=== PATIENT | female | born 1995 | race Caucasian/White ===

== ENCOUNTER → 2020-10-19 | Outpatient (CLI) | payer OTHER ==
--- NOTE | 2020-10-19 12:38 | Diagnostic Imaging Report ---
INDICATION: Anatomy scan. TECHNIQUE: Multiple real-time grayscale images were obtained over the gravid uterus. COMPARISON: None. FINDINGS: There is a single live fetus in variable presentation. heart rate was recorded 147 bpm. Cervical length is 6.6 cm. Amniotic fluid index is 15.3 cm. The placenta appears to be fundal as well as anterior and posterior. The kidneys, bladder and stomach are unremarkable. brain is unremarkable. There is a four-chamber heart. There is a three-vessel cord with normal insertion. spine is unremarkable. Biometrical measurements are as follows: Biparietal 4.59 cm, age 20 weeks 0 days. Head circumference 17.44 cm, age 20 weeks 0 days. Abdominal circumference 14.66 cm, age 20 weeks 0 days. Femur length 2.89 cm, age 19 weeks 0 days. Sonographic estimate age: 19 weeks 6 days. Sonographic estimated date of delivery: 03/09/2021. Estimated Weight: 297 gm (+/- 43 gm). LMP percentile: 21%. heart rate: 147 beats per minute. number: 1 of 1. IMPRESSION: Single live IUP 19 weeks 6 days gestational age. Estimated date of confinement sonographically is 03/09/2021. Dictated by: Dictated on workstation # [id number]
== END ==
LOC: RAD 10:00
PROVIDERS: ATTEND Nurse Practitioner Women's Health
DX: Z34.02 Encounter for supervision of normal first pregnancy, second trimester (principal); Z3A.19 19 weeks gestation of pregnancy
CPT/HCPCS: 76805

== ENCOUNTER 2021-01-27 09:21 | Outpatient (CLI) | payer OTHER ==
[~2021-01-27] VITALS: Ht 149.9 cm; Wt 67.3 kg
[2021-01-27 09:51] VITALS: BP 110/77
[2021-01-27 09:51] LABS: BILIRUBIN,URINE NEGATIVE (NEGATIVE); CLARITY,URINE SL CLOUDY; COLOR,URINE YELLOW; GLUCOSE, URINE (UA) NEGATIVE (NEGATIVE); KETONES,URINE NEGATIVE (NEGATIVE); LEUKOCYTE ESTERASE ,URINE 2+ (NEGATIVE); NITRITE,URINE NEGATIVE (NEGATIVE); PROTEIN,URINE TRACE (NEGATIVE)
[2021-01-27 10:00] LABS: BACTERIA,URINE LARGE /HPF
[2021-01-27] MEDS ORDERED: PREN-37 PO (10:01)
[2021-01-27] MEDS ORDERED: NS IV 1000 ML 1,000 ML ONE ×2 (10:16→10:56)
[2021-01-27] MEDS ORDERED: ONDANSETRON 4 MG/2 ML (SDV) Z0FRAN ONE (10:43)
[2021-01-27] MEDS ORDERED: morphine INJ 4 MG/ML 1 ML (VIAL/SYRINGE) ONE (10:44)
[2021-01-27] MEDS ORDERED: PROMETHAZINE INJ 25 MG/ML (PHENERGAN) AMP IVP PRN (10:45)
[2021-01-27] MEDS ORDERED: morphine INJ 10 MG/ML 1ML (SYR OR VIAL) IVP PRN (10:45)
[2021-01-27] MEDS ORDERED: NS IV 1000 ML 1,000 ML IV SCH ×2 (10:45→11:45)
[2021-01-27] MEDS ORDERED: ONDANSETRON 4 MG/2 ML (SDV) Z0FRAN IVP PRN (10:45)
[2021-01-27 10:56] LABS: BASOPHILS % (AUTO) 0 % (0-10); EOSINOPHILS % (AUTO) 0 % (0-10); HEMATOCRIT 35 % (35-52); HEMOGLOBIN 11.9 g/dL (11.5-16.0); LYMPHOCYTES # (AUTO) 1.2 10^3/uL (1.0-4.0); LYMPHOCYTES % (AUTO) 11 % (12-44); MEAN CORPUSCULAR HEMOGLOBIN 27 pg (25-34); MEAN CORPUSCULAR HGB CONC 34 g/dL (32-36); MEAN CORPUSCULAR VOLUME 79 fL (80-99); MEAN PLATELET VOLUME 10.7 fL (9.0-12.2); MONOCYTES # (AUTO) 0.5 10^3/uL (0.0-1.0); MONOCYTES % (AUTO) 4 % (0-12); NEUTROPHILS # (AUTO) 9.7 10^3/uL (1.8-7.8); NEUTROPHILS % (AUTO) 84 % (42-75); PLATELET COUNT 315 10^3/uL (130-400); WHITE BLOOD COUNT 11.5 10^3/uL (4.3-11.0)
[2021-01-27 11:10] LABS: CHLORIDE 107 MMOL/L (98-107); POTASSIUM 3.6 MMOL/L (3.6-5.0); SODIUM 139 MMOL/L (135-145)
[2021-01-27 11:11] LABS: CALCIUM 8.1 MG/DL (8.5-10.1)
[2021-01-27 11:12] LABS: GLUCOSE 84 MG/DL (70-105); TOTAL PROTEIN 5.6 GM/DL (6.4-8.2)
[2021-01-27 11:13] LABS: CARBON DIOXIDE 21 MMOL/L (21-32)
[2021-01-27 11:14] LABS: BILIRUBIN,TOTAL 0.4 MG/DL (0.1-1.0)
[2021-01-27 11:15] LABS: ALKALINE PHOSPHATASE 77 U/L (40-136); CREATININE SERUM 0.55 MG/DL (0.60-1.30); GFR ESTIMATED > 60
[2021-01-27 11:16] LABS: BUN/CREATININE RATIO 16
[2021-01-27 11:18] LABS: ALANINE AMINOTRANSFERASE 10 U/L (0-55)
[2021-01-27] MEDS ORDERED: morphine INJ 4 MG/ML 1 ML (VIAL/SYRINGE) IV PRN (11:30)
--- NOTE | 2021-01-28 10:14 | Antepartum Progress Note ---
Antepartum Progress Antepartum Progress Date Seen by Provider: Jan 27, 2021 Time Seen by Provider: 09:40 Hospital Day # [] Subjective: Denies complaints. Activity: []. Tolerating regular diet without nausea or vomiting. Fetus is active. No loss of fluid, vaginal bleeding, or contractions. Objective: [] Physical Exam General - alert and oriented, no apparent distress Abdomen - Soft, gravid, non-tender to palpation Ext - non-tender to palpation, no edema, negative Tosha's bilaterally heart tones: [] Tocometer: [] Assessment: Chetan white (26 /Para 5 / 3,Gestational Age (wks)34 [] Plan: Continue current plan. vitamin daily. VTE prophylaxis: [] Vitals - Labs Vital Signs - I&O Vital Signs Date Time Temp Pulse Resp B/P (MAP) Pulse Ox O2 Delivery O2 Flow Rate FiO2 01/27/21 17:30 Room Air I & O 01/28/21 07:00 Intake Total 2000 ml Balance 2000 ml Labs Laboratory Tests 01/27/21 10:40: White Blood Count 11.5H, Red Blood Count 4.46, Hemoglobin 11.9, Hematocrit 35, Mean Corpuscular Volume 79L, Mean Corpuscular Hemoglobin 27, Mean Corpuscular Hemoglobin Concent 34, Red Cell Distribution Width 12.3, Platelet Count 315, Mean Platelet Volume 10.7, Immature Granulocyte % (Auto) 0, Neutrophils (%) (A uto) 84H, Lymphocytes (%) (Auto) 11L, Monocytes (%) (Auto) 4, Eosinophils (%) (Auto) 0, Basophils (%) (Auto) 0, Neutrophils # (Auto) 9.7H, Lymphocytes # (Auto) 1.2, Monocytes # (Auto) 0.5, Eosinophils # (Auto) 0.0, Basophils # (Auto) 0.0, Immature Granulocyte # (Auto) 0.0 01/27/21 10:56: Sodium Level 139, Potassium Level 3.6, Chloride Level 107, Carbon Dioxide Level 21, Anion Gap 11, Blood Urea Nitrogen 9, Creatinine 0.55L, Estimat Glomerular Filtration Rate > 60, BUN/Creatinine Ratio 16, Glucose Level 84, Calcium Level 8.1L, Corrected Calcium 8.9, Total Bilirubin 0.4, Aspartate Amino Transf (AST/SGOT) 14, Alanine Aminotransferase (ALT/SGPT) 10, Alkaline Phosphatase 77, Total Protein 5.6L, Albumin 3.0L NASRIN MILLS DO Jan 28, 2021 10:14
== END 2021-01-27 17:30 | disposition home or self-care (01) ==
LOC: LDRP 09:21 → WSo 09:21
PROVIDERS: ATTEND Obstetrics & Gynecology
DX: O62.9 Abnormality of forces of labor, unspecified (principal); O46.93 Antepartum hemorrhage, unspecified, third trimester; Z3A.34 34 weeks gestation of pregnancy
CPT/HCPCS: 80053; 81000; 85025; 87088; 96361; 96374; 96375; G0463; 36415; 99214

== ENCOUNTER 2021-02-15 16:02 | Inpatient (IN) | payer BC, MEDICAID ==
[~2021-02-15] VITALS: Ht 149 cm; Wt 68.1 kg
[2021-02-15] VITALS (8 sets, daily range): BP systolic 106–137; BP diastolic 73–91
[~2021-02-15 16:02] MED LIST: PREN-37 PO
[2021-02-15] MEDS ORDERED: HYDROmorphone 2 MG/ML VIAL (DILAUDID) IV ONE (18:15)
[2021-02-15] MEDS: D5 LR IV SOLUTION 1,000 ML IV SCH (18:20)
--- NOTE | 2021-02-15 19:11 | History & Physical-OB/GYN ---
OB - Chief Complaint & HPI Date/Time Date of Admission: Date of Admission: Date seen by a Provider: Feb 15, 2021 Time Seen by a Provider: 19:06 Chief Complaint/History OB-Reason for Admission/Chief: Onset of Labor Hx : 4 Hx Para: 3 Hx Last Menstrual Period: 06/08/2020 Estimated Date of Conception: 03/08/2021 Expected Date of Delivery: Feb 15, 2021 Gestational Age in Weeks: 37 Gestational Age in Days: 0 History of Labs A+, antibody screen negative VDRL NR Hepatitis B neg HIV neg GC neg Rubella immune HCV neg GBS neg Initial Hgb 14.4, followup 12.6 Allergies and Home Medications Allergies Coded Allergies: No Known Drug Allergies (Unverified , 01/27/21) Home Medications Vit/Iron Fumarate/FA 1 Each Tablet, 1 EACH PO DAILY, (Reported) Last Action: Last Taken Edited Patient Home Medication List Home Medication List Reviewed: Yes OB - History Hx of Present Care: Yes Ultrasounds: Normal mid trimester US Obstetrical Complications: None Medical Complications: None Obstetrical History Hx : 4 Hx Para: 3 Hx # Term Pregnancies: 3 Hx # Pregnancies: 0 Number of Living Children: 3 Hx Termination: No Hx Total # of Abortions (Spona: 1 Social History/Family History Alcohol Use: Denies Use Recreational Drug Use: No Smoking Cessation: Never smoker 2nd Hand Smoke Exposure: No OB - Admission Exam Physical Exam Vitals: Vital Signs HEENT: NCAT Heart: Rhythm Normal Lungs: Clear Abdomen: Gravid Extremities: Normal Cervical Dilatation: 5cm Effacement: 100% Membranes: Intact Heart Rate: 130's Accelerations: Accelerations Present Decelerations: No Decelerations Rn Case Manager Hospice Variability: Average (6-25) Contractions on Admission: < 5 Minutes Apart Frequency of Contractions: 3-5 min Intensity: Moderate Labs Laboratory Tests Test 02/15/21 18:05 Range/Units OB - Assessment/Plan/Diagnosis Assessment Assessment: active labor Admission Dx 25 yo @ 37 weeks 0 days gestation Active labor GBS neg Admission Status: Inpatient Order (span 2 midnights) Plan Plan: Expectant Management Copy Copies To 1: DARLING LÓPEZ DO Supervisory-Addendum Brief Verification & Attestation Participated in pt care: history, physical Personally performed: exam, history Care discussed with: Medical Student Procedures: n/a JUAN FRANCISCO GALVEZ MED STUDENT Feb 15, 2021 19:11
[2021-02-15 19:12] LABS: BASOPHILS % (AUTO) 0 % (0-10); EOSINOPHILS % (AUTO) 0 % (0-10); HEMATOCRIT 40 % (35-52); HEMOGLOBIN 12.9 g/dL (11.5-16.0); LYMPHOCYTES # (AUTO) 2.2 10^3/uL (1.0-4.0); LYMPHOCYTES % (AUTO) 17 % (12-44); MEAN CORPUSCULAR HEMOGLOBIN 26 pg (25-34); MEAN CORPUSCULAR HGB CONC 32 g/dL (32-36); MEAN CORPUSCULAR VOLUME 81 fL (80-99); MEAN PLATELET VOLUME 11.6 fL (9.0-12.2); MONOCYTES # (AUTO) 0.7 10^3/uL (0.0-1.0); MONOCYTES % (AUTO) 5 % (0-12); NEUTROPHILS # (AUTO) 10.4 10^3/uL (1.8-7.8); NEUTROPHILS % (AUTO) 78 % (42-75); PLATELET COUNT 339 10^3/uL (130-400); WHITE BLOOD COUNT 13.3 10^3/uL (4.3-11.0)
[2021-02-15] MEDS ORDERED: LIDOCAINE/EPI 2% 1:200,00 (XYLOCAINE) 20 ML VIAL ONE (19:36)
[2021-02-15] MEDS ORDERED: OXYTOCIN PRE-MIX DRIP 500 ML IV ONE (19:36)
[2021-02-16] VITALS (10 sets, daily range): BP systolic 99–121; BP diastolic 50–69
[2021-02-16] MEDS: OXYTOCIN PRE-MIX DRIP 500 ML IV SCH ×2 (00:21→00:58)
[2021-02-16] MEDS ORDERED: MEASLES,MUMPS,RUBELLA 1 EA INJ SQ ONE (00:30)
[2021-02-16] MEDS ORDERED: BENZOCAINE/MENTHOL (DERMOPLAST) 56 ML CAN TP PRN (00:30)
[2021-02-16] MEDS ORDERED: DIBUCAINE 1% OINTMENT 30 GM TUBE TOP PRN (00:30)
[2021-02-16] MEDS ORDERED: WITCH HAZEL(TUCKS) 40 EA JAR TOP PRN (00:30)
[2021-02-16] MEDS ORDERED: HYDROcodone/APAP 5 MG/325 MG (LORTAB) TAB PO PRN (00:30)
[2021-02-16] MEDS ORDERED: TETANUS,DIPTH,PERTUSS P/F (BOOSTRIX) 0.5 ML VIAL IM ONE (00:30)
--- NOTE | 2021-02-16 00:33 | OB Labor & Delivery Record ---
L&D History Date of Service Date of Service: Feb 16, 2021 History Expected Date of Delivery: Feb 15, 2021 Gestational Age in Weeks: 37 Hx : 4 Hx Para: 3 Complications Events: Routine care Operative Indications (Cesarea: N/A-Vaginal Delivery Intrapartal Events: None L&D Stage1 Stage One Onset of Labor - Date: Feb 16, 2021 Monitors and Tracing Monitor Mode: External Heart Rate: 130 Monitor Accelerations: Uniform Monitor Decelerations: None Short Term Variability: Present Presentation: Vertex Vital Signs VS - Last 72 Hours, by Label 02/15/21 02/15/21 02/15/21 02/15/21 16:30 16:30 17:45 18:30 Temp 37.2 37.2 36.8 Pulse 95 95 87 136 Resp 16 16 18 18 B/P (MAP) 117/75 (89) 106/77 (87) Pulse Ox 97 97 98 O2 Delivery Room Air Room Air Room Air Room Air 02/15/21 02/15/21 02/15/21 02/15/21 19:00 19:30 20:00 20:30 Pulse 88 89 102 Resp 18 18 18 B/P (MAP) 119/79 (92) 137/81 (99) 129/91 (104) O2 Delivery Room Air Room Air Room Air 02/15/21 02/15/21 21:00 21:30 Resp 18 18 B/P (MAP) O2 Delivery Room Air Room Air Rupture of Membranes Spontaneous Ruture of Membrane: No Amniotic Membrane Rupture Time: 2021 Amniotic Membrane Fluid Desc.: Clear Vaginal Bleeding Description: Normal Show Progress/Notes Patient admitted in spontaneous labor, with no augmentation other than AROM, she progressed to complete and 0 station when she began to uncontrollably push. L&D Stage2 Stage Two Stage II Date: Feb 16, 2021 Monitors and Tracing Monitor Mode: External Heart Rate: 130 Monitor Decelerations: None Prison Variability: Average (6-10) Short Term Variability: Present Position: Right Occiput Anterior Presentation: Vertex Cord Descript/Complications Cord Vessel Description: 3 Vessels Complications nuchal cord tight and delivered through Delivery Type Infant Delivery Method: Spontaneous Vaginal Anterior Shoulder: Left Episiotomy/Perineal Laceration Laceraction(s)/Extensions: No Condition of Delivery 1 minute Comment: 8 5 minute Comment: 9 Notes Live male infant weight pending. Condition of Condition of : Living Exam: No Observed Abnormalities Resuscitation Resuscitation: N/A - Spontaneous Resp L&D Stage3 Stage Three Stage III Date: Feb 16, 2021 Pictocin Pitocin Administration Comment: 30 mu wide open at delivery of placenta Placenta Delivery Placenta Delivery: Spontaneous Delivery Summary Summary Estimated blood loss (mL): 250 Attending at delivery: Darling López DO Condition of Delivery Examined: Cervix Examined, Uterus Explored Post Hemorrhage: No Condition of Mother stable Condition of Infant (s) stable DARLING LÓPEZ DO Feb 16, 2021 00:33
--- NOTE | 2021-02-16 00:34 | Discharge Inst-Women's Service ---
Discharge Inst-Women's Serv Depart Medication/Instructions New, Converted or Re-Newed RX: RX on Chart Final Diagnosis PPD 1 NVD Problems Reviewed?: Yes Consults/Follow Up Additional Follow Up: Yes Orders/Referrals Dr. López in 6 weeks Activity Activity: Activity as Tolerated Driving Instructions: No Driving for 1 Week NO SMOKING: NO SMOKING Nothing Inside Vagina: No Douching, No [place], No Tampons Diet Discharge Diet: No Restrictions Symptoms to Report to : Bleeding Excessive, Pain Increased, Fever Over 101 Degrees F, Vaginal Bleeding Increase, Questions/Concerns For Any Problems or Questions: Contact Your Physician DARLING LÓPEZ DO Feb 16, 2021 00:34
[2021-02-16] MEDS ORDERED: IBUP-844 PO (00:35)
[2021-02-16] MEDS ORDERED: BENZ78AE5 TP (00:35)
[2021-02-16] MEDS ORDERED: DCS100C PO (00:35)
[2021-02-16] MEDS ORDERED: ACHD5005 PO (00:35)
[2021-02-16] MEDS ORDERED: DIBU30OI TOP (00:35)
[2021-02-16] MEDS ORDERED: IBUPROFEN 600 MG (MOTRIN) TAB PO ONE (02:30)
[2021-02-16] MEDS: IBUPROFEN 600 MG (MOTRIN) TAB PO SCH ×4 (02:33→19:53)
[2021-02-16] MEDS: DOCUSATE SODIUM 100 MG (COLACE) CAP PO SCH ×2 (08:02→19:52)
[2021-02-16] MEDS: PRENATAL VITAMIN 1 EA TAB PO SCH (08:03)
[2021-02-16] MEDS: FERROUS SULF 325 MG (IRON) TAB PO SCH (08:03)
[2021-02-16] MEDS: D5 LR IV SOLUTION 1,000 ML IV SCH (21:01)
[2021-02-16] MEDS: CATHETER FLUSH 10 ML SYR IV SCH ×2 (22:00→23:56)
[2021-02-17 01:04] VITALS: BP 108/53
[2021-02-17] MEDS: IBUPROFEN 600 MG (MOTRIN) TAB PO SCH ×3 (01:06→14:37)
[2021-02-17] MEDS: D5 LR IV SOLUTION 1,000 ML IV SCH (04:02)
[2021-02-17 05:33] LABS: BASOPHILS % (AUTO) 1 % (0-10); EOSINOPHILS # (AUTO) 0.2 10^3/uL (0.0-0.3); EOSINOPHILS % (AUTO) 2 % (0-10); HEMATOCRIT 36 % (35-52); HEMOGLOBIN 11.4 g/dL (11.5-16.0); LYMPHOCYTES # (AUTO) 2.3 10^3/uL (1.0-4.0); LYMPHOCYTES % (AUTO) 26 % (12-44); MEAN CORPUSCULAR HEMOGLOBIN 26 pg (25-34); MEAN CORPUSCULAR HGB CONC 32 g/dL (32-36); MEAN CORPUSCULAR VOLUME 82 fL (80-99); MEAN PLATELET VOLUME 10.9 fL (9.0-12.2); MONOCYTES # (AUTO) 0.7 10^3/uL (0.0-1.0); MONOCYTES % (AUTO) 8 % (0-12); NEUTROPHILS # (AUTO) 5.6 10^3/uL (1.8-7.8); NEUTROPHILS % (AUTO) 64 % (42-75); PLATELET COUNT 315 10^3/uL (130-400); WHITE BLOOD COUNT 8.9 10^3/uL (4.3-11.0)
[2021-02-17] MEDS: CATHETER FLUSH 10 ML SYR IV SCH ×2 (06:41)
[2021-02-17 08:35] VITALS: BP 115/67
[2021-02-17] MEDS: PRENATAL VITAMIN 1 EA TAB PO SCH (08:36)
[2021-02-17] MEDS: FERROUS SULF 325 MG (IRON) TAB PO SCH (08:36)
[2021-02-17] MEDS: DOCUSATE SODIUM 100 MG (COLACE) CAP PO SCH (08:37)
--- NOTE | 2021-02-17 10:07 | Postpartum Progress Note ---
Note Note Day # 1 Subjective: Patient is without complaints. Ambulating, voiding. Tolerating a regular diet without nausea or vomiting. Normal lochia. Pain is well controlled with oral pain medications. Objective: Physical Exam: General - Alert and oriented, no apparent distress Abdomen - Soft, appropriately tender to palpation, non-distended, fundus firm at umbilicus Extremities - no edema, negative Tosha's bilaterally Assessment: PPD 1 NVD Acute blood loss anemia Plan: Routine care. Encourage breast feeding. Encourage ambulation. Ferrous sulfate supplementation. Plan for discharge today Vitals - Labs Vital Signs - I&O Vital Signs Date Time Temp Pulse Resp B/P (MAP) Pulse Ox O2 Delivery O2 Flow Rate FiO2 02/17/21 08:35 36.6 79 16 115/67 (83) 99 Room Air 02/17/21 01:04 36.4 85 16 108/53 (71) 98 Room Air 02/17/21 00:00 Room Air 02/16/21 20:55 Room Air 02/16/21 19:50 36.5 72 18 108/59 (75) 97 Room Air 02/16/21 16:15 36.9 65 16 111/66 (81) 97 Room Air 02/16/21 12:03 36.6 78 16 104/69 (81) 99 Room Air Labs Laboratory Tests 02/17/21 05:11: White Blood Count 8.9, Red Blood Count 4.34, Hemoglobin 11.4L, Hematocrit 36, Mean Corpuscular Volume 82, Mean Corpuscular Hemoglobin 26, Mean Corpuscular Hemoglobin Concent 32, Red Cell Distribution Width 13.1, Platelet Count 315, Mean Platelet Volume 10.9, Immature Granulocyte % (Auto) 1, Neutrophils (%) (Auto) 64, Lymphocytes (%) (Auto) 26, Monocytes (%) (Auto) 8, Eosinophils (%) (Auto) 2, Basophils (%) (Auto) 1, Neutrophils # (Auto) 5.6, Lymphocytes # (Auto) 2.3, Monocytes # (Auto) 0.7, Eosinophils # (Auto) 0.2, Basophils # (Auto) 0.0, Immature Granulocyte # (Auto) 0.0 DARLING LÓPEZ DO Feb 17, 2021 10:07
[2021-02-17 14:35] VITALS: BP 104/56
== END 2021-02-17 17:20 | disposition home or self-care (01) | DRG 806 ==
LOC: LDRP 16:02 → WSo 16:02 → LDRP 17:44
PROVIDERS: ADMIT Obstetrics & Gynecology; ATTEND Obstetrics & Gynecology
PROC: 10E0XZZ Delivery of Products of Conception, External Approach (ICD-10-PCS; principal; 2021-02-16)
PROC: 10907ZC Drainage of Amniotic Fluid, Therapeutic from Products of Conception, Via Natural or Artificial Opening (ICD-10-PCS; 2021-02-16)
DX: O80 Encounter for full-term uncomplicated delivery (principal); D62 Acute posthemorrhagic anemia; Z37.0 Single live birth; Z3A.37 37 weeks gestation of pregnancy; O90.81 Anemia of the puerperium
CPT/HCPCS: 36415; 85025; 86850; 86900; 86901; 99212